=== PATIENT | male | born 1990 | race Caucasian/White ===

== ENCOUNTER 2023-10-24 00:21 | Emergency (ER) | payer BC, SELFPAY ==
[2023-10-24 00:22] VITALS: BP 136/86
[2023-10-24 00:33] VITALS: BMI 42.8
[2023-10-24 00:41] LABS: % Basophils 0.4 % (0-2); % Eosinophils 0.9 % (0-6); % Immature Granulocytes 0.2 % (0-0.5); % Lymphocytes 31.5 % (20.5-51.1); % Monocytes 7.3 % (1.7-9.3); % Neutrophils 59.7 % (42.2-75.2); Absolute Eosinophils 0.1 10^3/uL (0-0.7); Absolute Lymphocytes 2.7 10^3/uL (1.2-3.4); Absolute Monocytes 0.6 10^3/uL (0.1-0.6); Absolute Neutrophils 5.1 10^3/uL (1.4-6.5); Hematocrit 41.7 % (39.0-52.0); Hemoglobin 14.9 g/dL (13.0-18.0); Mean Corp Hgb Conc. 35.7 g/dL (33.0-37.0); Mean Corpuscular Hgb 29.4 pg (27.0-31.0); Mean Corpuscular Volume 82.2 fL (80.0-94.0); Mean Platelet Volume 10.2 fL (7.4-10.4); Nucleated Red Blood Cells % 0 % (-); Platelet Count 206 10^3/uL (130-400); Red Blood Cell Count 5.07 10^6/uL (4.70-6.10); Red Cell Dist. Width 12.9 % (11.5-14.5); White Blood Cell Count 8.5 10^3/uL (4.8-10.8)
--- NOTE | 2023-10-24 00:42 | ED.GENMED ---
History of Present Illness
General
Chief Complaint: Abdominal Pain
Source: patient
Time Seen by Provider: 10/24/23 00:32
History of Present Illness
History of Present Illness:
33yoM with no significant past medical history presenting with his for evaluation of abdominal pain. Patient was sleeping when he woke up with severe pain in his right abdomen. This occurred less than 1 hour prior to arrival. The pain was
associated with nausea and diaphoresis. The pain has subsided and is currently rated as a 6 out of 10 in severity. Nausea has resolved. No prior history of similar pains in the past. He has not taken anything OTC for his symtoms. He is otherwise
asymptomatic and denies any fevers, vomiting, diarrhea, dysuria, testicular pain. Patient had a cheese steak for dinner this evening. No previous abdominal surgeries.
Past History
Past History
ED Past Medical History: None
Social History
Tobacco: Non-smoker
Personal: Single
Living: with family
Employment: Student
Phy Exam
Physical Exam
Physical Exam:
Appears uncomfortable, non-toxic
General Physical Exam
General Presentation: well appearing
General age: appears stated age
General Skin: warm and dry
General Habitus: normal
General Mental: alert
ENT Exam
ENT Exam: normocephalic
Pulmonary Exam
Pulmonary Exam: no respiratory distress
Gastrointestinal Exam
Gastrointestinal Exam: soft, non distended and tender (+Tenderness to RUQ and RLQ. Negative Paz's sign. No guarding or rebound. No CVA tenderness. )
[place] Coma Scale
Eye Opening: Spontaneous
Verbal Response: Oriented
Motor Response: Obeys Commands
GCS Total Score: 15
Skin Exam
Skin Exam: normal color and warm/dry
Psychiatric Exam
Psychiatric Exam: normal mood/affect
Course
Orders/Labs/Results
Orders:
Orders
10/24/23 00:31
IV Insert/Care/Rem.- Treatment PRN
10/24/23 00:33
Complete Blood Count/With Diff Urgent
Comprehensive Metabolic Panel Urgent
Lipase Urgent
10/24/23 00:38
0.9% Sodium Chloride 1000 ml [Nss] 1,000 ml IV BOLUS
10/24/23 00:39
CT Abd/pelvis W Iv Cont Urgent
Comment:
Reason For Exam: R sided abd pain
10/24/23 01:39
Urinalysis Reflex To Culture Urgent
Date Specimen was Collected: 10/24/23
Time Specimen was Collected: 00:31
Urine Microscopic Reflex Cult Urgent
10/24/23 02:29
Tamsulosin [Flomax] 0.4 mg .ROUTE .STK-MED ONE
Abnormal Lab Results
10/24/23 10/24/23
00:33 01:39
Glucose 111 H mg/dl
(70-99)
Ur Occult Blood Reflex 4+ A
(Negative)
Urine RBC 40-50 A /HPF
(0-2)
10/24/23 00:33
10/24/23 00:33
Vital Signs
Initial and Last Documented VS:
Initial Vital Signs
Temp Pulse Resp BP Pulse Ox
97.6 F 89 18 136/86 100
10/24/23 00:22 10/24/23 00:22 10/24/23 00:22 10/24/23 00:22 10/24/23 00:22
Last Documented Vital Signs
Temp Pulse Resp BP Pulse Ox
97.6 F 89 18 136/86 100
10/24/23 00:22 10/24/23 00:22 10/24/23 00:22 10/24/23 00:22 10/24/23 00:22
MDM/Problems Addressed
Differential Diagnosis Includes:
33yoM here with R sided abd pain that woke him up from sleep <1 hour ago. Associated with nausea. No urinary symptoms or testicular pain. He appears uncomfortable but is non-toxic. He is afebrile and hemodynamically stable. No signs of peritonitis
on abdominal exam. Differential diagnosis includes but is not limited to: kidney stone, appendicitis, UTI, pyelonephritis, cholecystitis
Initial ED plan: Check abdominal labs, UA, and CT abdomen. IV fluid bolus. Patient declines analgesics.
*Critical Care Note
Total Time (30-74mins, 75-104mins- exclusive of procedures): Not Applicable
Update Note
Update Note:
CT shows a 2mm distal ureteral stone. Appendix and gallbladder appear normal on imaging. Renal function is stable. No signs of infection on urinalysis. Pain remains controlled on reassessment. He is stable for discharge. Supportive care discussed
including hydration, urine straining, and Flomax. Patient declines prescription for oxycodone. He was advised to use Tylenol and ibuprofen for pain. Advised close f/u with urology. ED return precautions discussed. He was discharged in stable
condition. Patient given discharge instructions during [facility] downtime.
ED Attending Note
-
Portions of this chart may have been created with voice recognition software.� Occasional wrong word or��sound alike� substitutions may have occurred due to the inherent limitations of voice recognition software.
Discharge Plan
Departure
Patient Disposition: Home (Routine Discharge)
Patient with high blood pressure during this ER visit?: No
Discharge Problem:
Calculus of distal right ureter
Referrals:
UNKNOWN - PT DOES,NOT KNOW [Unknown Provider] -
Interventions
Interventions:
*Risk Screen - Suicide Last Done: 10/24/23 00:22
*General Assessment Last Done: 10/24/23 00:22
*Neglect/Abuse Screening Last Done: 10/24/23 00:33
ED- Fall Risk Assessment Last Done: 10/24/23 00:37
*ED COVID-19 Vaccine History Last Done: 10/24/23 00:33
*Nursing Disposition Last Done: 10/24/23 02:55
SB-Uwcvij-Wgkxyxiatp Assessment Last Done: 10/24/23 00:37
Discharge Date and Time
Discharge Date/Time: 10/24/23 02:55
Print Language: NAMIBIAN
[2023-10-24] MEDS: NSS 1000 IV (00:43)
[2023-10-24 01:03] LABS: ALT (SGPT) 37 U/L (0-50); AST (SGOT) 28 U/L (17-59); Albumin 4.6 g/dl (3.5-5.0); Alkaline Phosphatase 78 U/L (38-126); Blood Urea Nitrogen 18 mg/dl (9-20); Calcium 9.8 mg/dl (8.4-10.2); Carbon Dioxide 25 mmol/L (22-30); Chloride 105 mmol/L (98-107); Estimated Creatinine Clearance > 125 ml/min; Glucose 111 mg/dl (70-99); Lipase 115 U/L (23-300); Potassium 4.2 mmol/L (3.5-5.1); Sodium 143 mmol/L (135-145); Total Bilirubin 0.6 mg/dl (0.2-1.3); Total Protein 6.7 g/dl (6.3-8.2); eGFR > 60.00
--- NOTE | 2023-10-24 03:10 | DOWNTIME ---
There was a [employer] Downtime on 10/24/2023 from 0100 to 10/24/2023 at 0300. Downtime documentation of patient's care, including medication administrations, has been reconciled in the electronic record per guidelines. Refer to the
patient's paper chart under the miscellaneous tab to see printed paper medication records and downtime forms.
[2023-10-24 03:17] LABS: Urine Albumin Trace (Neg - Trace); Urine Bilirubin Negative (Negative); Urine Character Clear (Clear); Urine Color Yellow; Urine Glucose Negative (Negative); Urine Ketone Negative (Negative); Urine Leukocyte Negative (Negative); Urine Nitrite Negative (Negative); Urine Occult Blood 4+ (Negative); Urine Urobilinogen Negative (Neg - 1+)
[2023-10-24 03:18] LABS: Urine Red Blood Cell 40-50 /HPF (0-2); Urine Squamous Cell 0-2 /LPF (Few); Urine White Cell 0-2 /HPF (0-5)
== END 2023-10-24 02:55 | disposition home or self-care (01) ==
LOC: EMR 00:21
PROVIDERS: Student in an Organized Health Care Education/Training Program; EMERGENCY PHYSICIAN Student in an Organized Health Care Education/Training Program; FAMILY PHYSICIAN Family Medicine
DX: N20.1 Calculus of ureter (principal); R11.0 Nausea; R61 Generalized hyperhidrosis
CPT/HCPCS: 99284; 96360; 74177; 80053; 81003; 81015; 83690; 85025; Q9967